=== PATIENT | male | born 1965 | race Caucasian/White ===

== ENCOUNTER 2019-02-24 19:30 | Outpatient (CLI) | payer BC | END 2019-02-24 19:31 | disposition home or self-care (01) | LOC: SLEEPLAB 19:30 | PROVIDERS: ATTEND Family Medicine | DX: G47.33 Obstructive sleep apnea (adult) (pediatric) (principal); F51.9 Sleep disorder not due to a substance or known physiological condition, unspecified; G47.10 Hypersomnia, unspecified; G47.9 Sleep disorder, unspecified; G47.00 Insomnia, unspecified; R53.83 Other fatigue; R06.83 Snoring; I10 Essential (primary) hypertension; E66.9 Obesity, unspecified; Z68.35 Body mass index [BMI] 35.0-35.9, adult | CPT/HCPCS: 95811 ==